=== PATIENT | male | born 1955 | race Caucasian/White ===

== ENCOUNTER 2024-06-09 16:30 | Inpatient (IN) ==
[2024-06-09 17:18] LABS: Basophils # (auto) 0.01 K/uL (0.00-0.20); Basophils % (auto) 0.3 %; Eosinophils % (auto) 2.7 %; Hematocrit (blood only) 37.3 % (42.0-52.0); Hemoglobin 12.7 g/dl (14.0-18.0); Immature Granulocytes # (auto) 0.01 K/uL (0.01-0.20); Immature Granulocytes % (auto) 0.3 %; Lymphocytes # (auto) 1.23 K/uL (1.20-3.40); Lymphocytes % (auto) 33.8 %; Mean Corpuscular Hemoglobin 30.2 pg (25.0-34.0); Mean Corpuscular Volume 88.6 fL (80.0-100.0); Mean Platelet Volume 9.1 fL (9.4-12.4); Monocytes # (auto) 0.47 K/uL (0.11-0.59); Monocytes % (auto) 12.9 %; Neutrophils # (auto) 1.82 K/uL (1.40-6.50); Platelet Count 266 K/uL (130-400); RDW Coefficient of Variation 14.4 % (11.5-14.5); RDW Standard Deviation 46.1 fL (36.4-46.3); Red Blood Count 4.21 M/uL (4.70-6.10); White Blood Count 3.64 K/ul (4.8-10.8)
[2024-06-09 17:33] LABS: Albumin Globulin Ratio 1.6 (0.9-2); Albumin Level 4.4 gm/dl (3.4-5.0); BUN Creatinine Ratio 12.6 (10-20); Bilirubin,Total 0.7 mg/dl (0.2-1.0); Calcium 9.3 mg/dl (8.6-10.3); Creatinine Clr Calc Pharmacy 71.8 ml/min; Globulin 2.8 gm/dl (2.5-4.0); Magnesium 1.6 mg/dl (1.7-2.4); Potassium 3.5 mmol/L (3.5-5.1); Total Protein 7.2 gm/dl (6.0-8.3)
--- NOTE | 2024-06-09 17:39 | Emergency Department Note ---
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 There was no loss of consciousness. No injury. The patient states that he seemed fine after. He states that yesterday morning, without warning, he vomited. He went to the bathroom and then vomited again. He was fine for most of the day. At around 5 PM yesterday though, he was showering and felt very lightheaded. He thinks he lost about 15 to 20 minutes of time as he cannot recall the shower and when he looked at the clock, around 20 minutes had passed. When he got out of the shower, he was weak in both upper extremities and had a hard time dressing. He forgot to dry off. He had a hard time finding his words or finding what he wanted to say. He went to bed, he woke up this morning and felt back to baseline, he has had no symptoms throughout the day today. There is no headache, no arm or leg weakness. No chest pain or shortness of breath or abdominal pain. He called his doctor's office because of his symptoms, he was referred to the ER. He does have a history of previous CVA. He is on Plavix. PMHx/PSHx/Social Hx: See Below PHYSICAL EXAM: GENERAL: Patient is in no acute distress. HEENT: No acute trauma, normocephalic atraumatic, mucous membranes moist, no nasal congestion. NECK: No stridor, no adenopathy, no meningismus, trachea is midline. LUNGS: Clear to auscultation bilaterally, no wheeze, no rhonchi, breath sounds equal. HEART: 1/6 systolic murmur, regular rate and rhythm. ABDOMEN: Soft, nontender, no peritonitis. EXTREMITIES: No cyanosis, full range of motion of all the joints without pain or difficulty. NEUROLOGIC: Awake alert, no speech slur. There is a right facial droop although the family believes this is old. No extremity drift or cerebellar dysfunction. SKIN: No jaundice, no diaphoresis. DIFFERENTIAL DIAGNOSIS: TIA, CVA, intracranial bleeding, electrolyte imbalance, UTI, dysrhythmia, among others. EMERGENCY DEPARTMENT PROCEDURES: MEDICAL DECISION MAKING: There is no leukocytosis, in fact, the white count is somewhat low indicating a potential viral process. Patient did have a mild anemia with a hemoglobin of 12.7, looking at previous records, the patient seems to carry history of anemia. There was a normal platelet count. No coagulopathy. No renal failure. Magnesium somewhat low at 1.6. No concerning liver enzyme elevation. ECG showed a normal sinus rhythm, no ischemia. Cardiac enzyme testing x 1 was not consistent with acute cardiac injury. Urinalysis did not show findings of infection. Brain CT showed no acute bleed or mass effect. CT angio of the head and neck were performed. There were some areas of chronic occlusion, there were areas of arterial narrowing. On exam, the patient did have a right facial droop which by his report was old. There were no acute focal neurologic findings, no extremity deficits. As per nursing staff, stroke scale was 0. The patient was essentially asymptomatic. The patient received a 500 cc saline bolus. He was given IV magnesium. He was given oral aspirin. The patient presents with strokelike symptoms which luckily, resolved spontaneously prior to arrival. He actually has been asymptomatic all day today. The patient is not a candidate for TNK given his resolution of symptoms. The patient has a history of CVA. He does have an abnormal CT angio of the head and neck. He is at risk for stroke and certainly sounds to have had a TIA within the last 24 to 48 hours. I spoke with the patient, I do think a hospital stay is warranted. I spoke with the case management team, the on-call hospitalist was consulted. The patient requires further stroke workup as well as a neurology consult. Prior/Outside records/notes reviewed: None ECG per my interpretation: Indication was possible stroke. The ECG shows a normal sinus rhythm with a rate of 68. There is no acute ST elevation, no PVCs. The QTc is 448. Continuous Cardiac Monitoring per my interpretation: An order was placed for continuous cardiac monitoring. The monitor shows a rate of 65 with normal sinus rhythm. Imaging/x-ray results per my interpretation: Chronic Medical/Social conditions affecting care: History of previous CVA Care/Management discussed with: Case management, the on-call hospitalist. Level of care consideration(s): After review of the information above and other included data: --I believe the patient requires escalation of care to admission DISPOSITION: Admission Past Med/Surg History Problem List (Updated 06/09/24 @ 22:18 by Tramaine Miller MD) Abnormal brain CT (Acute) Hypomagnesemia (Acute) Anemia (Acute) Facial droop (Acute) History of CVA (cerebrovascular accident) (Acute) Stroke-like symptoms (Acute) Diabetes Stroke-like symptoms Encounter for pre-operative examination Lip laceration (Acute) Alcoholic intoxication (Acute) Alcohol overdose (Acute) Alcohol overdose (Acute) Hypertension (Chronic) Hyperlipidemia (Chronic) GERD (gastroesophageal reflux disease) (Chronic) Medical History Hx of gastroesophageal reflux (GERD) History of stroke 2018, "slight memory loss"; f/u [facility] neurology > currently on plavix Anxiety and depression Hypertension Hyperlipidemia Surgical History Hx of eye surgery "for a hole in his eye">no current vision issues Social History Smoking Status: Current every day smoker Tobacco Type: Cigarettes Cigarettes Per Day: 1; Second Hand Exposure: No; Do You Dip or Chew Tobacco: No; Hx Alcohol Use: Yes Alcohol type: wine Hx Substance Use: No Preferred Language: Citizen Of [place] Communication Ability: Effective Appliance Line Assembler Required: No Beliefs That Will Affect Care: None Current Living Situation: Spouse Feels Safe at Home: Yes Assistive Devices: Glasses Allergies Allergies Allergy/AdvReac Type Severity Reaction Status Date / Time No Known Allergies Allergy Verified 06/09/24 17:59 Home Meds Home Medications Medication Instructions Recorded Confirmed amlodipine 10 mg tablet 10 mg PO QAM 05/27/24 06/09/24 atorvastatin 80 mg tablet (Lipitor) 80 mg PO QAM 05/27/24 06/09/24 bupropion HCl 150 mg 24 hr tablet, 150 mg PO QAM 05/27/24 06/09/24 extended release (Wellbutrin XL) clopidogrel 75 mg tablet (Plavix) 75 mg PO QAM 05/27/24 06/09/24 escitalopram oxalate 20 mg tablet 20 mg PO QAM 05/27/24 06/09/24 (Lexapro) hydrochlorothiazide 25 mg tablet 25 mg PO QAM 05/27/24 06/09/24 lisinopril 40 mg tablet 40 mg PO QAM 05/27/24 06/09/24 metformin 1,000 mg tablet 1,000 mg PO BID 05/27/24 06/09/24 Results & Data (ED) Vital Signs Vital Signs - 24 hr 06/09/24 16:35 06/09/24 17:16 06/09/24 18:33 Temperature 36.7 C Temperature Source Temporal Artery Scan Pulse Rate 74 65 Pulse Rate [Apical] 61 Pulse Rhythm Regular Pulse Strength Normal Respiratory Rate 20 18 Respiratory Effort / Characteristics Non-Labored Spontaneous Non-Labored Spontaneous Respiratory Depth Normal Normal Respiratory Pattern Regular Blood Pressure 134/79 Blood Pressure [Left Arm] 164/80 H Blood Pressure Mean 97 Blood Pressure Mean [Left Arm] 108 Blood Pressure Position Lying Pulse Oximetry 96 96 Oxygen Delivery Method Room Air Room Air Sepsis Recent Fever Within 48 Hours No Sepsis New/Unexplained Change in Mental Status N/A Sepsis Action Taken by Nursing No Action Required 06/09/24 19:00 Temperature Temperature Source Pulse Rate Pulse Rate [Apical] Pulse Rhythm Pulse Strength Respiratory Rate Respiratory Effort / Characteristics Respiratory Depth Respiratory Pattern Blood Pressure Blood Pressure [Left Arm] Blood Pressure Mean Blood Pressure Mean [Left Arm] Blood Pressure Position Pulse Oximetry Oxygen Delivery Method Room Air Sepsis Recent Fever Within 48 Hours Sepsis New/Unexplained Change in Mental Status Sepsis Action Taken by Long-Term Medications Current Medication List: was personally reviewed by me Laboratory Data Attestation: I reviewed the patient's lab results. 06/09/24 17:03 06/09/24 17:03 Lab Results 06/09/24 06/09/24 Range/Units 17:03 18:43 WBC 3.64 L (4.8-10.8) K/ul RBC 4.21 L (4.70-6.10) M/uL Hgb 12.7 L (14.0-18.0) g/dl Hct 37.3 L (42.0-52.0) % MCV 88.6 (80.0-100.0) fL MCH 30.2 (25.0-34.0) pg MCHC 34.0 (32.0-36.0) g/dL RDW Std Deviation 46.1 (36.4-46.3) fL RDW Coeff of [place] 14.4 (11.5-14.5) % Plt Count 266 (130-400) K/uL MPV 9.1 L (9.4-12.4) fL Immature Gran % (Auto) 0.3 % Neut % (Auto) 50.0 % Lymph % (Auto) 33.8 % [place] % (Auto) 12.9 % Eos % (Auto) 2.7 % Baso % (Auto) 0.3 % Neut # (Auto) 1.82 (1.40-6.50) K/uL Lymph # (Auto) 1.23 (1.20-3.40) K/uL Camp # (Auto) 0.47 (0.11-0.59) K/uL Eos # (Auto) 0.10 (0.00-0.50) K/uL Baso # (Auto) 0.01 (0.00-0.20) K/uL Immature Gran # (Auto) 0.01 (0.01-0.20) K/uL PT 11.0 (9.0-12.0) Seconds INR 1.0 (0.9-1.1) APTT 25 (21-31) Seconds PTT Ratio 0.9 Sodium 139 (136-145) mmol/L Potassium 3.5 (3.5-5.1) mmol/L Chloride 98 (98-107) mmol/L Carbon Dioxide 29 (21-32) mmol/L Anion Gap 12 H (3-11) BUN 14 (6-23) mg/dl Creatinine 1.11 (0.6-1.4) mg/dl Est Cr Clr Drug Dosing 71.8 ml/min eGFR 73.24 BUN/Creatinine Ratio 12.6 (10-20) Glucose 108 H (70-99(Fasting)) mg/dl Calcium 9.3 (8.6-10.3) mg/dl Magnesium 1.6 L (1.7-2.4) mg/dl Total Bilirubin 0.7 (0.2-1.0) mg/dl AST 22 (13-39) U/L ALT 21 (7-52) U/L Alkaline Phosphatase 77 (34-104) U/L Troponin I High Sens 4.0 (0-20) pg/ml Total Protein 7.2 (6.0-8.3) gm/dl Albumin 4.4 (3.4-5.0) gm/dl Globulin 2.8 (2.5-4.0) gm/dl Albumin/Globulin Ratio 1.6 (0.9-2) Urine Color Yellow Urine Appearance Clear (Clear) Urine pH 7.5 (4.5-7.5) Ur Specific [place] 1.017 (1.000-1.030) Urine Protein Trace H (Negative) Urine Glucose (UA) Negative (Negative) Urine Ketones Trace H (Negative) Urine Blood Negative (Negative) Urine Nitrite Negative (Negative) Urine Bilirubin Negative (Negative) Urine Urobilinogen Positive H (Negative) Ur Leukocyte Esterase Negative (Negative) Urine WBC (Auto) 0-5 (0-5) /hpf Urine RBC (Auto) 3-5 H (0-2) /hpf U Hyaline Cast (Auto) 0-2 (0-2) /lpf U Epithel Cells (Auto) 0-2 (0-2) /hpf Urine Bacteria (Auto) None Seen (None Seen) Administered Medications Lactated Ringer's (Lr) 1,000 mls @ 100 mls/hr IV .Q10H JENNI Stop: 06/10/24 06:29 Last Admin: 06/09/24 20:27 Dose: 100 mls/hr Documented By: MEGAN Insulin Aspart (Insulin Aspart Per Unit Charge) 0 units SC ACHS JENNI Stop: 07/09/24 21:06 Last Admin: 06/09/24 22:08 Dose: Not Given Documented By: SJG Discontinued Medications Aspirin (Aspirin 81 Mg Chew) 324 mg PO NOW STA Stop: 06/09/24 20:15 Last Admin: 06/09/24 20:26 Dose: 324 mg Documented By: MEGAN Magnesium Sulfate/Dextrose (Magnesium Sulfate / D5w) 1 gm in 100 mls @ 100 mls/hr IV NOW STA Stop: 06/09/24 18:51 Last Infusion: 06/09/24 19:47 Dose: Infused Documented By: Admin: 06/09/24 18:41 Dose: 100 mls/hr Documented By: JANKI Sodium Chloride (Nss) 500 mls @ 999 mls/hr IV .Q31M ONE Stop: 06/09/24 19:38 Last Infusion: 06/09/24 19:47 Dose: Infused Documented By: Admin: 06/09/24 19:16 Dose: 999 mls/hr Documented By: MEGAN Ioversol (Optiray 320 125ml) 115 ml IV ONCE ONE Stop: 06/09/24 18:29 Last Admin: 06/09/24 18:29 Dose: 115 ml Documented By: ROSAURA Imaging Data Radiologist's Impression: Head CT 06/09/24 16:50 EXAM: CT Head Without Intravenous Contrast INDICATION: Syncope. Amnesia. TECHNIQUE: Axial computed tomography images of the head/brain without intravenous contrast. Sagittal and/or coronal reformats are provided. Sagittal and coronal reformatted images were created and reviewed. This CT exam was performed using one or more of the following dose reduction techniques: automated exposure control, adjustment of the mA and/or kV according to patient size, and/or use of iterative reconstruction technique. COMPARISON: No relevant prior studies available. FINDINGS: Limitations: None. Brain and extra-axial spaces: There is age appropriate cortical atrophy and chronic ischemic periventricular white matter hypodensity. No acute infarct, hemorrhage or mass noted. Old left frontal infarct with ex vacuo dilatation of the left lateral ventricle. Bones/joints: No acute changes. Soft tissues: No significant abnormality noted. Vasculature: Intracranial atherosclerosis. Sinuses: Mild chronic ethmoid sinus thickening. No sinus fluid. Mastoid air cells: No mastoid effusion. Orbits: No significant abnormality noted. IMPRESSION: Cerebral atrophy. No acute changes. The case was discussed by phone with Dr. Miller at 7:15 PM 06/09/2024. ACT 112: N/A Electronically signed by Em Feliz 06-09-2024 7:19 PM Head CTA 06/09/24 16:50 EXAM: CT Angiography Head and Neck With Intravenous Contrast INDICATION: Syncope. Lightheadedness. TECHNIQUE: [place]/head and neck CT angiography protocol performed with intravenous contrast. Sagittal and coronal reformatted images were created and reviewed. This CT exam was performed using one or more of the following dose reduction techniques: automated exposure control, adjustment of the mA and/or kV according to patient size, and/or use of iterative reconstruction technique. MIP reconstructed images were created and reviewed. CONTRAST: 115ml of Optiray 320 was administered intravenously. COMPARISON: None. FINDINGS: HEAD: Right anterior cerebral artery: No abnormality noted. No occlusion or significant stenosis. Anterior communicating artery is present. No aneurysm. Right middle cerebral artery: There is focal stenosis distal right M1 middle cerebral artery of about 50% with mild poststenotic dilatation. No occlusion or dissection. No aneurysm. Right posterior cerebral artery: No abnormality noted. No occlusion or significant stenosis. No aneurysm. Right intracranial internal carotid artery: No abnormality noted. No significant stenosis. No dissection or occlusion. Right intracranial vertebral artery: There is focal calcific plaque intracranial right vertebral artery without occlusion. Focal approximate 40% stenosis at the plaque. No aneurysm or dissection. Left anterior cerebral artery: No abnormality noted. No occlusion or significant stenosis. No aneurysm. Left middle cerebral artery: There is occlusion of left M1 middle cerebral artery. No aneurysm. Left posterior cerebral artery: Normal variant origin left posterior cerebral artery. No aneurysm, dissection or occlusion. Left intracranial internal carotid artery: No abnormality noted. No significant stenosis. No dissection or occlusion. Left intracranial vertebral artery: Extremely diminutive intracranial left vertebral artery which appears occluded close to the entrance to the foramen magnum. Basilar artery: No abnormality noted. No occlusion or significant stenosis. No aneurysm. Other vasculature: Patent dural venous sinuses. No vascular malformation. NECK: Right common carotid artery: No abnormality noted. No significant stenosis. No dissection or occlusion. Right extracranial internal carotid artery: No abnormality noted. No significant stenosis. No dissection or occlusion. Right external carotid artery: No abnormality noted. No occlusion. Right extracranial vertebral artery: No abnormality noted. No significant stenosis. No dissection or occlusion. Left common carotid artery: No abnormality noted. No significant stenosis. No dissection or occlusion. Left extracranial internal carotid artery: Moderate mixed plaque left cervical internal carotid bulb and proximal segment with less than 25% stenosis. No dissection or occlusion. Left external carotid artery: No abnormality noted. No occlusion. Left extracranial vertebral artery: No abnormality noted. No significant stenosis. No dissection or occlusion. Lung apices: No significant abnormality noted. HEAD and NECK: Bones/joints: No significant abnormality. Soft tissues: No abnormality noted. CAROTID STENOSIS REFERENCE USING NASCET CRITERIA: % ICA stenosis = (1 - narrowest ICA diameter/diameter of distal cervical ICA) x 100. Mild - <50% stenosis. Moderate - 50-69% stenosis. Severe - 70-94% stenosis. Near occlusion - 95-99% stenosis. Occluded - 100% stenosis. IMPRESSION: 1. There is occlusion of left M1 middle cerebral artery. Acuity uncertain. 2. Left middle cerebral artery occlusion distal M1. This is likely chronic as the patient is not hemiplegic. 3. 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 4. There is focal calcification in the right intracranial vertebral artery with about 40% stenosis. 5. There is a short focal stenosis of up to 50% in the right M1 middle cerebral artery. The case was discussed by phone with Dr. Miller at 7:15 PM 06/09/2024. ACT 112: N/A Electronically signed by Em Feliz 06-09-2024 7:19 PM Neck CTA 06/09/24 16:50 EXAM: CT Angiography Head and Neck With Intravenous Contrast INDICATION: Syncope. Lightheadedness. TECHNIQUE: [place]/head and neck CT angiography protocol performed with intravenous contrast. Sagittal and coronal reformatted images were created and reviewed. This CT exam was performed using one or more of the following dose reduction techniques: automated exposure control, adjustment of the mA and/or kV according to patient size, and/or use of iterative reconstruction technique. MIP reconstructed images were created and reviewed. CONTRAST: 115ml of Optiray 320 was administered intravenously. COMPARISON: None. FINDINGS: HEAD: Right anterior cerebral artery: No abnormality noted. No occlusion or significant stenosis. Anterior communicating artery is present. No aneurysm. Right middle cerebral artery: There is focal stenosis distal right M1 middle cerebral artery of about 50% with mild poststenotic dilatation. No occlusion or dissection. No aneurysm. Right posterior cerebral artery: No abnormality noted. No occlusion or significant stenosis. No aneurysm. Right intracranial internal carotid artery: No abnormality noted. No significant stenosis. No dissection or occlusion. Right intracranial vertebral artery: There is focal calcific plaque intracranial right vertebral artery without occlusion. Focal approximate 40% stenosis at the plaque. No aneurysm or dissection. Left anterior cerebral artery: No abnormality noted. No occlusion or significant stenosis. No aneurysm. Left middle cerebral artery: There is occlusion of left M1 middle cerebral artery. No aneurysm. Left posterior cerebral artery: Normal variant origin left posterior cerebral artery. No aneurysm, dissection or occlusion. Left intracranial internal carotid artery: No abnormality noted. No significant stenosis. No dissection or occlusion. Left intracranial vertebral artery: Extremely diminutive intracranial left vertebral artery which appears occluded close to the entrance to the foramen magnum. Basilar artery: No abnormality noted. No occlusion or significant stenosis. No aneurysm. Other vasculature: Patent dural venous sinuses. No vascular malformation. NECK: Right common carotid artery: No abnormality noted. No significant stenosis. No dissection or occlusion. Right extracranial internal carotid artery: No abnormality noted. No significant stenosis. No dissection or occlusion. Right external carotid artery: No abnormality noted. No occlusion. Right extracranial vertebral artery: No abnormality noted. No significant stenosis. No dissection or occlusion. Left common carotid artery: No abnormality noted. No significant stenosis. No dissection or occlusion. Left extracranial internal carotid artery: Moderate mixed plaque left cervical internal carotid bulb and proximal segment with less than 25% stenosis. No dissection or occlusion. Left external carotid artery: No abnormality noted. No occlusion. Left extracranial vertebral artery: No abnormality noted. No significant stenosis. No dissection or occlusion. Lung apices: No significant abnormality noted. HEAD and NECK: Bones/joints: No significant abnormality. Soft tissues: No abnormality noted. CAROTID STENOSIS REFERENCE USING NASCET CRITERIA: % ICA stenosis = (1 - narrowest ICA diameter/diameter of distal cervical ICA) x 100. Mild - <50% stenosis. Moderate - 50-69% stenosis. Severe - 70-94% stenosis. Near occlusion - 95-99% stenosis. Occluded - 100% stenosis. IMPRESSION: 1. There is occlusion of left M1 middle cerebral artery. Acuity uncertain. 2. Left middle cerebral artery occlusion distal M1. This is likely chronic as the patient is not hemiplegic. 3. 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 4. There is focal calcification in the right intracranial vertebral artery with about 40% stenosis. 5. There is a short focal stenosis of up to 50% in the right M1 middle cerebral artery. The case was discussed by phone with Dr. Miller at 7:15 PM 06/09/2024. ACT 112: N/A Electronically signed by Em Feliz 06-09-2024 7:19 PM Discharge Plan Visit Data Chief Complaint: Neuro Symptoms/Deficit Stated Complaint: PMHx STROKE,VOMITING,CONFUSION,PROBLEM SPEAK,FALL ED Provider: Tramaine Miller Discharge Problem: Stroke-like symptoms, History of CVA (cerebrovascular accident), Facial droop, Anemia, Hypomagnesemia, Abnormal brain CT Patient Disposition: Admitted As Inpatient Condition: Serious Discharge Instructions Interventions: ED Discharge Assessment Last Done: 06/09/24 21:01 Discharge Problem: Anemia Qualifiers: Anemia type: unspecified type Qualified Code(s): D64.9 - Anemia, unspecified
[2024-06-09 17:43] LABS: Partial Thromboplastin Ratio 0.9; Partial Thromboplastin Time 25 Seconds (21-31)
[2024-06-09] MEDS: OPTIRAY 320 125ml IV ONE (18:29)
[2024-06-09] MEDS: MAGNESIUM SULFATE / D5W 1 GM/100 ML BAG IV STA (18:41)
[2024-06-09 19:02] LABS: Appearance Urine Clear (Clear); Bacteria Urine Automated None Seen (None Seen); Bilirubin Urine Negative (Negative); Blood Urine Negative (Negative); Cast Urine Automated 0-2 /lpf (0-2); Color Urine Yellow; Epithelial Cell Urine Auto 0-2 /hpf (0-2); Glucose Urine UA Negative (Negative); Ketones Urine Trace (Negative); Leukocyte Esterase Urine Negative (Negative); Nitrite Urine Negative (Negative); Protein Urine Trace (Negative); Specific Gravity Urine 1.017 (1.000-1.030); Urobilinogen Urine Positive (Negative); WBC Urine Automated 0-5 /hpf (0-5); pH Urine 7.5 (4.5-7.5)
[2024-06-09] MEDS: SODIUM CHLORIDE 0.9% 500 ML IV ONE (19:16)
--- NOTE | 2024-06-09 19:19 | CT Scan Report ---
EXAM: CT Angiography Head and Neck With Intravenous Contrast INDICATION: Syncope. Lightheadedness. TECHNIQUE: [place] [facility] [place]/head and neck CT angiography protocol performed with intravenous contrast. Sagittal and coronal reformatted images were created and reviewed. This CT exam was performed using one or more of the following dose reduction techniques: automated exposure control, adjustment of the mA and/or kV according to patient size, and/or use of iterative reconstruction technique. MIP reconstructed images were created and reviewed. CONTRAST: 115ml of Optiray 320 was administered intravenously. COMPARISON: None. FINDINGS: HEAD: Right anterior cerebral artery: No abnormality noted. No occlusion or significant stenosis. Anterior communicating artery is present. No aneurysm. Right middle cerebral artery: There is focal stenosis distal right M1 middle cerebral artery of about 50% with mild poststenotic dilatation. No occlusion or dissection. No aneurysm. Right posterior cerebral artery: No abnormality noted. No occlusion or significant stenosis. No aneurysm. Right intracranial internal carotid artery: No abnormality noted. No significant stenosis. No dissection or occlusion. Right intracranial vertebral artery: There is focal calcific plaque intracranial right vertebral artery without occlusion. Focal approximate 40% stenosis at the plaque. No aneurysm or dissection. Left anterior cerebral artery: No abnormality noted. No occlusion or significant stenosis. No aneurysm. Left middle cerebral artery: There is occlusion of left M1 middle cerebral artery. No aneurysm. Left posterior cerebral artery: Normal variant origin left posterior cerebral artery. No aneurysm, dissection or occlusion. Left intracranial internal carotid artery: No abnormality noted. No significant stenosis. No dissection or occlusion. Left intracranial vertebral artery: Extremely diminutive intracranial left vertebral artery which appears occluded close to the entrance to the foramen magnum. Basilar artery: No abnormality noted. No occlusion or significant stenosis. No aneurysm. Other vasculature: Patent dural venous sinuses. No vascular malformation. NECK: Right common carotid artery: No abnormality noted. No significant stenosis. No dissection or occlusion. Right extracranial internal carotid artery: No abnormality noted. No significant stenosis. No dissection or occlusion. Right external carotid artery: No abnormality noted. No occlusion. Right extracranial vertebral artery: No abnormality noted. No significant stenosis. No dissection or occlusion. Left common carotid artery: No abnormality noted. No significant stenosis. No dissection or occlusion. Left extracranial internal carotid artery: Moderate mixed plaque left cervical internal carotid bulb and proximal segment with less than 25% stenosis. No dissection or occlusion. Left external carotid artery: No abnormality noted. No occlusion. Left extracranial vertebral artery: No abnormality noted. No significant stenosis. No dissection or occlusion. Lung apices: No significant abnormality noted. HEAD and NECK: Bones/joints: No significant abnormality. Soft tissues: No abnormality noted. CAROTID STENOSIS REFERENCE USING NASCET CRITERIA: % ICA stenosis = (1 - narrowest ICA diameter/diameter of distal cervical ICA) x 100. Mild - <50% stenosis. Moderate - 50-69% stenosis. Severe - 70-94% stenosis. Near occlusion - 95-99% stenosis. Occluded - 100% stenosis. IMPRESSION: 1. There is occlusion of left M1 middle cerebral artery. Acuity uncertain. 2. Left middle cerebral artery occlusion distal M1. This is likely chronic as the patient is not hemiplegic. 3. 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 4. There is focal calcification in the right intracranial vertebral artery with about 40% stenosis. 5. There is a short focal stenosis of up to 50% in the right M1 middle cerebral artery. The case was discussed by phone with Dr. Miller at 7:15 PM 06/09/2024. ACT 112: N/A Electronically signed by Em Feliz 06-09-2024 7:19 PM
--- NOTE | 2024-06-09 19:19 | CT Scan Report ---
EXAM: CT Head Without Intravenous Contrast INDICATION: Syncope. Amnesia. TECHNIQUE: Axial computed tomography images of the head/brain without intravenous contrast. Sagittal and/or coronal reformats are provided. Sagittal and coronal reformatted images were created and reviewed. This CT exam was performed using one or more of the following dose reduction techniques: automated exposure control, adjustment of the mA and/or kV according to patient size, and/or use of iterative reconstruction technique. COMPARISON: No relevant prior studies available. FINDINGS: Limitations: None. Brain and extra-axial spaces: There is age appropriate cortical atrophy and chronic ischemic periventricular white matter hypodensity. No acute infarct, hemorrhage or mass noted. Old left frontal infarct with ex vacuo dilatation of the left lateral ventricle. Bones/joints: No acute changes. Soft tissues: No significant abnormality noted. Vasculature: Intracranial atherosclerosis. Sinuses: Mild chronic ethmoid sinus thickening. No sinus fluid. Mastoid air cells: No mastoid effusion. Orbits: No significant abnormality noted. IMPRESSION: Cerebral atrophy. No acute changes. The case was discussed by phone with Dr. Miller at 7:15 PM 06/09/2024. ACT 112: N/A Electronically signed by Em Feliz 06-09-2024 7:19 PM
--- NOTE | 2024-06-09 20:18 | History & Physical Report ---
Date of Service June 09, 2024 Assessment & Plan (1) Stroke-like symptoms: Plan: CT with multiple vessel occlusions. Likely TIA as symptoms have resolved. MRI ordered. ASA 324 mg given. Patient already on Plavix and high intensity statin therapy. Neurology consult - appreciate recs Allow permissive HTN - aim SBP 160s Held amlodipine, HCTZ, and lisinopril Labetalol 10 mg IV PRN for SBP > 200 or DBP > 110 MRI and ECHO ordered HbA1c and lipids (2) Hypertension: Plan: Hold BP meds as above for now (3) Diabetes: Plan: Hold metformin. SSI insulin ordered, no basal - adjust as indicated (4) History of stroke: Plan: Patient relatively young to have multiple CVAs. Per , there's a strong family history of cardiovascular/cerebrovascular events. May want to explore alternative reasons for his vasculopathic status. Plan Anxiety/Depression - continue home meds HLD: continue high intensity statin therapy Code status: full DVT ppx: ASA and Plavix, SCDs FENGI: HH and CC, mIVF @ 100 mL/hr x 1 L Dispo: PCU/Tele History of Present Illness Chief Complaint: stroke like symptoms Primary Care Provider: Ophelia Peña MD 68 y/o male with a PMHx of diabetes, HTN, HLD, and prior CVA here for evaluation of stroke like symptoms. Patient hit his head 2 days ago - no LOC or injury to the area. [place] fine after. Yesterday he vomited twice and didn't eat much - no other symptoms. Then around 5 pm he was showering and he had some loss of time. It took him about 20 minutes to shower which is long for him. He describes what sounds like slurred speech and expressive aphasia. He also reports that he had bilateral upper extremity weakness which made drying off and getting dressed take a long time. He took a Tylenol and went to bed. When he awoke his symptoms had resolved. He called his PCP office who recommended ED evaluation. In the ED patient was given 500 mL NSS and magnesium. CT Head and CTA Head & Neck. Hospitalist service consulted for admission. Upon my interview patient denies any neurological symptoms. No motor or strength concerns. Right sided facial droop is chronic. Generally feeling well. No headache. is present at bedside and aids in obtaining the history. Allergies Allergy/AdvReac Type Severity Reaction Status Date / Time No Known Allergies Allergy Verified 06/09/24 17:59 Home Medications Medication Instructions Recorded Confirmed Type amlodipine 10 mg tablet 10 mg PO QAM 05/27/24 06/09/24 History atorvastatin 80 mg tablet (Lipitor) 80 mg PO QAM 05/27/24 06/09/24 History bupropion HCl 150 mg 24 hr tablet, 150 mg PO QAM 05/27/24 06/09/24 History extended release (Wellbutrin XL) clopidogrel 75 mg tablet (Plavix) 75 mg PO QAM 05/27/24 06/09/24 History escitalopram oxalate 20 mg tablet 20 mg PO QAM 05/27/24 06/09/24 History (Lexapro) hydrochlorothiazide 25 mg tablet 25 mg PO QAM 05/27/24 06/09/24 History lisinopril 40 mg tablet 40 mg PO QAM 05/27/24 06/09/24 History metformin 1,000 mg tablet 1,000 mg PO BID 05/27/24 06/09/24 History aspirin 81 mg tablet,delayed 81 mg PO QAM #30 tabs 06/10/24 Rx release levetiracetam 500 mg tablet 500 mg PO BID #60 tabs 06/10/24 Rx (Keppra) Past Med/Surg History Problem List (Updated 06/11/24 @ 00:07 by Background Dacandida) Stenosis of left middle cerebral artery Seizure-like activity Abnormal brain CT (Acute) Hypomagnesemia (Acute) Anemia (Acute) Facial droop (Acute) History of CVA (cerebrovascular accident) (Acute) Stroke-like symptoms (Acute) Diabetes Stroke-like symptoms Encounter for pre-operative examination Lip laceration (Acute) Alcoholic intoxication (Acute) Alcohol overdose (Acute) Alcohol overdose (Acute) Hypertension (Chronic) Hyperlipidemia (Chronic) GERD (gastroesophageal reflux disease) (Chronic) Medical History Hx of gastroesophageal reflux (GERD) History of stroke 2018, "slight memory loss"; f/u [facility] [place] neurology > currently on plavix Anxiety and depression Hypertension Hyperlipidemia Surgical History Hx of eye surgery "for a hole in his eye">no current vision issues Social History Smoking Status: Never smoker Tobacco Type: Cigarettes Cigarettes Per Day: 1; Second Hand Exposure: No; Do You Dip or Chew Tobacco: No; Hx Alcohol Use: No Hx Substance Use: No Preferred Language: Bengali Communication Ability: Effective 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 Beliefs That Will Affect Care: None Current Living Situation: Spouse Feels Safe at Home: Yes Assistive Devices: None Review of Systems 2 Review of Systems: See HPI Physical Exam 2 Physical Exam: Gen: well appearing patient in NAD HEENT: AT NC MMM Resp: CTAB no wheezing no increased work of breathing CV: RRR no m/r/g clinically well perfused Abd: soft, non-tender, non-distended MSK: no obvious deformities Skin: no rashes or bruising Neuro: alert and oriented, 5/5 strength all extremities, sensation intact, no focal deficits - old slight right facial droop noted, speech fluent and congruent Psych: appropriate mood and affect Results & Data Results & Data Vital Signs (Past 12 Hours) Vital Signs Temp Pulse Pulse Resp BP BP Pulse Ox 06/09/24 19:00 06/09/24 18:33 61 18 164/80 H 96 06/09/24 17:16 65 06/09/24 16:35 36.7 C 74 20 134/79 96 O2 Del Method 06/09/24 19:00 Room Air 06/09/24 18:33 Room Air 06/09/24 17:16 06/09/24 16:35 Room Air Laboratory Results 06/09/24 17:03 06/09/24 17:[address] 06/09/24 16:50 FINDINGS: Brain and extra-axial spaces: There is age appropriate cortical atrophy and chronic ischemic periventricular white matter hypodensity. No acute infarct, hemorrhage or mass noted. Old left frontal infarct with ex vacuo dilatation of the left lateral ventricle. Bones/joints: No acute changes. Soft tissues: No significant abnormality noted. Vasculature: Intracranial atherosclerosis. Sinuses: Mild chronic ethmoid sinus thickening. No sinus fluid. Mastoid air cells: No mastoid effusion. Orbits: No significant abnormality noted. IMPRESSION: Cerebral atrophy. No acute changes. Neck CTA 06/09/24 16:50 FINDINGS: HEAD: Right anterior cerebral artery: No abnormality noted. No occlusion or significant stenosis. Anterior communicating artery is present. No aneurysm. Right middle cerebral artery: There is focal stenosis distal right M1 middle cerebral artery of about 50% with mild poststenotic dilatation. No occlusion or dissection. No aneurysm. Right posterior cerebral artery: No abnormality noted. No occlusion or significant stenosis. No aneurysm. Right intracranial internal carotid artery: No abnormality noted. No significant stenosis. No dissection or occlusion. Right intracranial vertebral artery: There is focal calcific plaque intracranial right vertebral artery without occlusion. Focal approximate 40% stenosis at the plaque. No aneurysm or dissection. Left anterior cerebral artery: No abnormality noted. No occlusion or significant stenosis. No aneurysm. Left middle cerebral artery: There is occlusion of left M1 middle cerebral artery. No aneurysm. Left posterior cerebral artery: Normal variant origin left posterior cerebral artery. No aneurysm, dissection or occlusion. Left intracranial internal carotid artery: No abnormality noted. No significant stenosis. No dissection or occlusion. Left intracranial vertebral artery: Extremely diminutive intracranial left vertebral artery which appears occluded close to the entrance to the foramen magnum. Basilar artery: No abnormality noted. No occlusion or significant stenosis. No aneurysm. Other vasculature: Patent dural venous sinuses. No vascular malformation. NECK: Right common carotid artery: No abnormality noted. No significant stenosis. No dissection or occlusion. Right extracranial internal carotid artery: No abnormality noted. No significant stenosis. No dissection or occlusion. Right external carotid artery: No abnormality noted. No occlusion. Right extracranial vertebral artery: No abnormality noted. No significant stenosis. No dissection or occlusion. Left common carotid artery: No abnormality noted. No significant stenosis. No dissection or occlusion. Left extracranial internal carotid artery: Moderate mixed plaque left cervical internal carotid bulb and proximal segment with less than 25% stenosis. No dissection or occlusion. Left external carotid artery: No abnormality noted. No occlusion. Left extracranial vertebral artery: No abnormality noted. No significant stenosis. No dissection or occlusion. Lung apices: No significant abnormality noted. HEAD and NECK: Bones/joints: No significant abnormality. Soft tissues: No abnormality noted. CAROTID STENOSIS REFERENCE USING NASCET CRITERIA: % ICA stenosis = (1 - narrowest ICA diameter/diameter of distal cervical ICA) x 100. Mild - <50% stenosis. Moderate - 50-69% stenosis. Severe - 70-94% stenosis. Near occlusion - 95-99% stenosis. Occluded - 100% stenosis. IMPRESSION: 1. There is occlusion of left M1 middle cerebral artery. Acuity uncertain. 2. Left middle cerebral artery occlusion distal M1. This is likely chronic as the patient is not hemiplegic. 3. 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 4. There is focal calcification in the right intracranial vertebral artery with about 40% stenosis. 5. There is a short focal stenosis of up to 50% in the right M1 middle cerebral artery. The case was discussed by phone with Dr. Miller at 7:15 PM 06/09/2024. ACT 112: N/A Electronically signed by Em Feliz 06-09-2024 7:19 PM Supervising Physician Co-Signing Physician Notes Attending addendum: I have physically seen this patient, have supervised the medical residents activities, and agree with the H&P unless as otherwise noted. Assessment and Plan: The patient is a 68-year-old male with past medical history including diabetes mellitus, hypertension, hyperlipidemia, and previous CVA, who presents to the emergency department complaining of loss of time that occurred while he was showering, feeling that he lost about 20 minutes of time overall. Symptoms were accompanied by slurred speech and expressive aphasia. He also reported some bilateral upper extremity weakness which made him take considerably longer drying off after a shower than usual. He reports that he then went to bed, and after he awoke, his symptoms had completely resolved. When he called his PCPs office, they recommended he come to the ED for assessment. #Strokelike symptoms- Patient symptoms of slurred speech and expressive aphasia had resolved spontaneously as noted above Evaluation in the emergency department included a CT scan head, which showed cerebral atrophy with no acute changes. CTA of head and neck showed an occlusion of the left M1 MCA Left MCA occlusion distal M1 is likely chronic, as the patient is not hyperplasia Left intracranial vertebral artery is diminutive and proximally occluded Focal calcification in the right intracranial vertebral artery with a 40% stenosis Short focal stenosis of up to 50% in the right M1 middle cerebral artery. MRI of brain shows no acute findings in the head or brain. There is a chronic left frontal lobe infarct The patient will be admitted to telemetry for serial cardiac enzymes, serial EKG's, cardiac rhythm monitoring and a 2-D echocardiogram with Dopplers. Permissive hypertension Labetalol as needed as noted Check hemoglobin A1c and fasting lipid panel Continue aspirin 81 mg daily and clopidogrel 75 mg daily. Consult PT/OT/speech/neurology Hyperlipidemia-continue atorvastatin Check fasting lipid panel Diabetes mellitus- Holding metformin Insulin as noted Chronic medical conditions: Anxiety/depression-holding home meds for now Resident Activity Tracking Resident Involvement: Resident Care Provided Care Provided: Adult Hospital Medicine
[2024-06-09] MEDS: ASPIRIN 81 MG CHEW PO STA (20:26)
[2024-06-09] MEDS: LACTATED RINGER'S 1,000 ML IV SCH (20:27)
[2024-06-09] MEDS ORDERED: PHARMACIST DISCHARGE MED REC CONSULT PRN (21:07)
[2024-06-09] MEDS ORDERED: MAGNESIUM HYDROXIDE SUSP 30 ML UDC PO PRN (21:07)
[2024-06-09] MEDS ORDERED: GLUCAGON FOR INJ 1 MG VIAL SQ PRN (21:07)
[2024-06-09] MEDS ORDERED: ALUMINUM/MAGNESIUM SUSP 30 ML UDC PO PRN (21:07)
[2024-06-09] MEDS ORDERED: GLUCOSE 10 TAB/TUBE PO PRN (21:07)
[2024-06-09] MEDS ORDERED: CARBOHYDRATES FOR HYPOGLYCEMIA PO PRN (21:07)
[2024-06-09] MEDS ORDERED: ACETAMINOPHEN 500 MG TAB PO PRN (21:07)
[2024-06-09] MEDS ORDERED: DEXTROSE 50% 50 ML SYRINGE IV PRN (21:07)
[2024-06-09] MEDS ORDERED: GLUCOSE 40% GEL 15 GM TUBE PO PRN (21:07)
[2024-06-09] MEDS ORDERED: LABETALOL HCL IV 5 MG/ML 20ML IV PRN (21:07)
[2024-06-09] MEDS ORDERED: POLYETHYLENE (MIRALAX) 17 GM PACK PO PRN (21:07)
[2024-06-09] MEDS: INSULIN ASPART PER UNIT CHARGE SC SCH (22:08)
--- NOTE | 2024-06-10 00:51 | Magnetic Resonance Report ---
Exam(s): MRI HEAD Without Contrast EXAM: MR Head Without Intravenous Contrast CLINICAL HISTORY: Reason for exam: stroke r/o. TECHNIQUE: Magnetic resonance images of the head/brain without intravenous contrast in multiple planes. COMPARISON: CT head, CTA head 06/09/24 FINDINGS: Brain: No diffusion restriction to suggest acute cerebral ischemia. No acute intracranial hemorrhage. Generalized parenchymal volume loss. Encephalomalacia within the left frontal lobe consistent with chronic left MCA territory infarct. Periventricular foci of FLAIR signal hyperintensity in keeping with chronic small vessel ischemic change. Chronic lacunar infarcts right basal ganglia. Ventricles: Ex vacuo enlargement of the left lateral ventricle. No hydrocephalus. Bones/joints: Unremarkable. No acute fracture. Sinuses: Mucosal thickening within the right ethmoids. Mastoid air cells: Unremarkable as visualized. No mastoid effusion. Orbits: Unremarkable as visualized. IMPRESSION: 1. No acute findings in the head/brain. 2. Chronic left frontal lobe infarct Electronically signed by: Bola Barber M.D. 06/10/24 00:50 AM
[2024-06-10 07:17] VITALS: RESP 17
[2024-06-10 07:46] LABS: Basophils # (auto) 0.01 K/uL (0.00-0.20); Basophils % (auto) 0.2 %; Eosinophils # (auto) 0.14 K/uL (0.00-0.50); Eosinophils % (auto) 2.9 %; Hematocrit (blood only) 37.8 % (42.0-52.0); Hemoglobin 12.6 g/dl (14.0-18.0); Immature Granulocytes # (auto) 0.01 K/uL (0.01-0.20); Immature Granulocytes % (auto) 0.2 %; Lymphocytes # (auto) 1.15 K/uL (1.20-3.40); Lymphocytes % (auto) 23.8 %; Mean Corpuscular Hemoglobin 29.7 pg (25.0-34.0); Mean Corpuscular Hgb Conc 33.3 g/dL (32.0-36.0); Mean Corpuscular Volume 89.2 fL (80.0-100.0); Mean Platelet Volume 9.2 fL (9.4-12.4); Monocytes # (auto) 0.53 K/uL (0.11-0.59); Neutrophils % (auto) 61.9 %; Platelet Count 275 K/uL (130-400); RDW Coefficient of Variation 14.5 % (11.5-14.5); Red Blood Count 4.24 M/uL (4.70-6.10); White Blood Count 4.84 K/ul (4.8-10.8)
[2024-06-10 07:58] LABS: BUN Creatinine Ratio 12.9 (10-20); Calcium 8.6 mg/dl (8.6-10.3); Chol HDL Ratio 4.1 (0-5); Creatinine Clr Calc Pharmacy 85.7 ml/min; Potassium 3.3 mmol/L (3.5-5.1)
[2024-06-10] MEDS: CLOPIDOGREL BISULFATE 75 MG TAB PO SCH (08:52)
[2024-06-10] MEDS: buPROPion XL 150 MG TABCR PO SCH (08:52)
[2024-06-10] MEDS: ASPIRIN 81 MG ECTAB PO SCH (08:52)
[2024-06-10] MEDS: ESCITALOPRAM OXALATE 20 MG TAB PO SCH (08:53)
[2024-06-10] MEDS: ATORVASTATIN 40 MG TAB PO SCH (08:53)
--- NOTE | 2024-06-10 09:34 | Neurology Consultation ---
Date of Consultation June 10, 2024 Assessment & Plan (1) Stroke-like symptoms: (2) Seizure-like activity: (3) History of CVA (cerebrovascular accident): (4) Stenosis of left middle cerebral artery: Plan 68-year-old male with a history of relatively large chronic left frontal lobe infarct occurring in 2018, resulting in mild speech hesitancy with minimal to no residual right hemiparesis. He had presented with a seizure at that time and had briefly been prescribed Keppra, tapered off this medication without interval seizures. Patient now presents with an episode of what sounds like speech arrest without associated loss of awareness or collapse, confusion, inability to get dressed, possible weakness of the upper limbs, loss of time perception. The episode was preceded by a minor fall earlier that morning followed by 2 episodes of emesis. He has otherwise not been ill. Denies consuming excessive alcohol recently. The above acute episode seems consistent with either a focal onset seizure (partial complex seizure) or possibly a TIA. He does have chronic intracranial occlusive disease, notably left M1 segment on CT angiography. Could therefore also consider focal cerebral hypoperfusion due to a vasovagal episode. I suspect he is currently at his neurologic baseline. Would recommend an EEG. Order placed. Would start Keppra 500 mg twice daily. Order placed. Continue with dual antiplatelet therapy, aspirin 81 mg/day, clopidogrel 75 mg/day for 4 weeks, followed by transition back to clopidogrel monotherapy. Continue with atorvastatin 80 mg/day. Patient's LDL is appropriate, goal 70 or less. May allow for permissive hypertension per stroke protocol. Patient may follow-up with myself or an LAINEY in neurology clinic in 2 to 3 weeks after discharge. 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 He was then having a hard time getting dressed, could not speak or move his limbs, no associated collapse for loss of awareness, partially amnestic for the episode. Symptoms have resolved although decided to come to the emergency department for further evaluation. He indicates that some of his symptoms were similar to what he had experienced when he was diagnosed with an acute stroke in 2018. He does not recall experiencing any subsequent similar symptoms. He had briefly been treated with Keppra after his initial stroke in 2018 but had tapered off this medication without any difficulty. He currently feels fine, no headache. He is aware of very subtle speech hesitancy which is chronic. CT angiography of the head and neck revealed a chronic occlusion of the left M1 segment and a short focal stenosis of 50% in the right M1 segment. The left vertebral artery is diminutive and proximally occluded, the right vertebral artery has a 40% intracranial stenosis. Brain MRI is negative for acute infarct or hemorrhage. There is a chronic left frontal lobe infarct extending from the lateral ventricle to the cortex, with associated dilatation of the left lateral ventricle. There are some associated atrophy of the left hippocampal formation and relatively increased FLAIR signal. I independently reviewed these images. Allergies Allergy/AdvReac Type Severity Reaction Status Date / Time No Known Allergies Allergy Verified 06/09/24 17:59 Home Medications Medication Instructions Recorded Confirmed Type amlodipine 10 mg tablet 10 mg PO QAM 05/27/24 06/09/24 History atorvastatin 80 mg tablet (Lipitor) 80 mg PO QAM 05/27/24 06/09/24 History bupropion HCl 150 mg 24 hr tablet, 150 mg PO QAM 05/27/24 06/09/24 History extended release (Wellbutrin XL) clopidogrel 75 mg tablet (Plavix) 75 mg PO QAM 05/27/24 06/09/24 History escitalopram oxalate 20 mg tablet 20 mg PO QAM 05/27/24 06/09/24 History (Lexapro) hydrochlorothiazide 25 mg tablet 25 mg PO QAM 05/27/24 06/09/24 History lisinopril 40 mg tablet 40 mg PO QAM 05/27/24 06/09/24 History metformin 1,000 mg tablet 1,000 mg PO BID 05/27/24 06/09/24 History Patient History Medical History Hx of gastroesophageal reflux (GERD) History of stroke 2018, "slight memory loss"; f/u [facility] [place] > currently on plavix Anxiety and depression Hypertension Hyperlipidemia Surgical History Hx of eye surgery "for a hole in his eye">no current vision issues Social History Smoking Status: Never smoker Tobacco Type: Cigarettes Cigarettes Per Day: 1; Second Hand Exposure: No; Do You Dip or Chew Tobacco: No; Hx Alcohol Use: No Hx Substance Use: No Preferred Language: [place] Communication Ability: Effective 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 Beliefs That Will Affect Care: None Current Living Situation: Spouse Other Information That Helps Us Care for You: No Feels Safe at Home: Yes Safety Concerns: Feels Safe At This Time Assistive Devices: None Review of Systems Constitutional: no fever and no chills Eyes: no blind spots and no diplopia Ear, Nose, Mouth, Throat: no hearing loss Respiratory: no cough and no dyspnea Cardiovascular: no chest pain and no palpitations Gastrointestinal: as per Subjective / HPI, + nausea and + vomiting Genitourinary: no urinary incontinence Musculoskeletal: no neck pain and no myalgia Integumentary: no rash and no lesions Neurologic: as per Subjective / HPI Psychiatric: no depression and no anxiety Hematologic / Lymphatic: no easy bleeding and no easy bruising Exam (Neuro) Constitutional: well developed and well nourished; no acute distress Eyes: normal visual hamm by confrontation, PERRL and EOM intact bilaterally; no nystagmus Neurologic: Oriented to:: Person, Place and Time Memory: Short Term Intact and Remote Intact Attention: Span Intact and Concentration Intact Speech Fluency: Dysfluency (Mild word finding difficulty); negative Dysarthria Speech Aphasia: negative Aphasia Fund of Knowledge: Current Events, Past History and Vocabulary Cranial Nerves: Normal II, III, IV, , V, VIII, IX, X, XI and XII; Abnorm VII (Mild right lower facial droop) Motor Strength: Normal Lower Extremities and Normal Upper Extremities Motor Tone: Normal Lower Extremities and Normal Upper Extremities Muscle Bulk/Involuntary Movements: No Involuntary Movements; negative Muscle Atrophy Sensation: Light Touch Intact, Pain/Temperature Intact and Proprioception Intact Coordination: Normal; negative Dysdiadochokinesia, Finger-Nose Abnormal or Heel-Morgan Abnormal Deep Tendon Reflexes: Rt Triceps: 2+, Lt Triceps: 2+, Rt Biceps: 3+, Lt Biceps: 2+, Rt Brachioradialis: 2+, Lt Brachioradialis: 2+, Rt Patellar: 3+, Lt Patellar: 2+, Rt Ankle: 2+ and Lt Ankle: 1+ Special Tests: Babinski Present (Right plantar equivocal, left plantar downgoing) Results & Data Vital Signs (Past 12 Hours) Vital Signs Temp Pulse Pulse Resp BP Pulse Ox O2 Del Method 06/10/24 07:16 36.5 C 65 17 149/90 H 97 Room Air 06/10/24 03:52 36.9 C 61 19 157/78 H 96 Room Air 06/10/24 00:23 37.0 C 66 18 152/79 H 94 Room Air 06/09/24 23:48 65 06/09/24 22:14 36.9 C 20 161/83 H 94 Room Air Laboratory Results WBC 4.84, hemoglobin 12.6, hematocrit 37.8, platelet count 275, sodium 138, potassium 3.3, BUN 12, creatinine 0.93, glucose 131, magnesium 1.6, AST 22, ALT 1, triglycerides 164, cholesterol 116, LDL 55, HDL 28 Diagnostic Findings Electrocardiogram, normal sinus rhythm, 60 bpm. PG Care Time/CCT Total # of Minutes Spent Total Time Spent with Patient: Total time spent is greater than 50% in coordination of care (as documented) at patient's floor/unit and/or counseling patient: Coding Level of Care Code 25178 INT INP/OBS CARE 3/75MIN Diagnoses Stroke-like symptoms R29.90 Seizure-like activity R56.9 History of CVA (cerebrovascular accident) Z86.73 Stenosis of left middle cerebral artery I66.02 Time Spent (min) 90 Comment Total time includes patient contact, chart review, counseling, note preparation
[2024-06-10 10:06] LABS: Estimated Average Glucose 143 mg/dl; Hemoglobin A1C 6.6 % (4.5-5.6)
--- NOTE | 2024-06-10 11:48 | Pharmacy Report ---
- Date of Service June 10, 2024 - Pharmacy CVA/TIA Medication Review Medications to Prevent Stroke handout has been added to the patients discharge packet. Antiplatelet(s) * Aspirin 81mg daily + plavix 75mg daily x 4 weeks, then transition back to clopidogrel monotherapy Cholesterol * High intensity statin: atorvastatin 80 mg daily DVT Prophylaxis * SCD knee Therapeutic Anticoagulation * No history of Afib/Aflutter noted Type 2 Diabetes * Patient has T2DM, but per hospitalist, a diabetes medication with proven CVD benefit will be deferred to their outpatient provider due to familiarity with risks/benefits of such therapies. "Medications to prevent stroke" handout has already been added to the patient's discharge packet, which instructs the patient to follow up with their outpatient provider to evaluate which diabetes medication with proven CVD benefit is best for them
[2024-06-10] MEDS: levETIRAcetam 500 MG TAB PO SCH (11:55)
--- NOTE | 2024-06-10 12:06 | Electroencephalogram ---
EEG Procedure Note Date of Service June 10, 2024 Start / End Times Start Time: 11:15 AM End Time: 11:35 AM Referring Physician Barber Gibson MD History Seizure-like episode, history of left frontal lobe stroke Home Medication List Medication Instructions Recorded Confirmed Type amlodipine 10 mg tablet 10 mg PO QAM 05/27/24 06/09/24 History atorvastatin 80 mg tablet (Lipitor) 80 mg PO QAM 05/27/24 06/09/24 History bupropion HCl 150 mg 24 hr tablet, 150 mg PO QAM 05/27/24 06/09/24 History extended release (Wellbutrin XL) clopidogrel 75 mg tablet (Plavix) 75 mg PO QAM 05/27/24 06/09/24 History escitalopram oxalate 20 mg tablet 20 mg PO QAM 05/27/24 06/09/24 History (Lexapro) hydrochlorothiazide 25 mg tablet 25 mg PO QAM 05/27/24 06/09/24 History lisinopril 40 mg tablet 40 mg PO QAM 05/27/24 06/09/24 History metformin 1,000 mg tablet 1,000 mg PO BID 05/27/24 06/09/24 History Inpatient Medication List Aspirin (Aspirin 81 Mg Ectab) 81 mg PO [facility] Stop: 07/10/24 08:59 Last Admin: 06/10/24 08:52 Dose: 81 mg Documented By: AM Atorvastatin Calcium ([facility]atin 40 Mg Tab) [facility] [place] [facility]: 07/10/24 08:59 Last Admin: 06/10/24 08:53 Dose: 80 mg Documented By: AM Bupropion HCl (Bupropion Xl 150 Mg Tabcr) 150 mg PO [facility] Stop: 07/10/24 08:59 Last Admin: 06/10/24 08:52 Dose: 150 mg Documented By: AM Clopidogrel Bisulfate (Clopidogrel Bisulfate 75 Mg Tab) [facility] [place] [facility]: 07/10/24 08:59 Last Admin: 06/10/24 08:52 Dose: 75 mg Documented By: AM Escitalopram Oxalate (Escitalopram Oxalate 20 Mg Tab) [facility] [place]: 07/10/24 08:59 Last Admin: 06/10/24 08:53 Dose: 20 mg Documented By: AM Insulin Aspart (Insulin Aspart Per Unit Charge) 0 units SC [facility] Stop: 07/09/24 21:06 Last Admin: 06/10/24 11:59 Dose: 2 units Documented By: AM Co-signed By: Admin: 06/10/24 08:50 Dose: 2 units Documented By: AM Co-signed By: MICHELLE Admin: 06/09/24 22:08 Dose: Not Given Documented By: LOTTIE Levetiracetam (Levetiracetam 500 Mg Tab) 500 mg PO BID JENNI Stop: 07/10/24 10:14 Last Admin: 06/10/24 11:55 Dose: 500 mg Documented By: AM Discontinued Medications Aspirin (Aspirin 81 Mg Chew) 324 mg PO NOW STA Stop: 06/09/24 20:15 Last Admin: 06/09/24 20:26 Dose: 324 mg Documented By: MEGAN Magnesium Sulfate/Dextrose (Magnesium Sulfate / D5w) 1 gm in 100 mls @ 100 mls/hr IV NOW STA Stop: 06/09/24 18:51 Last Infusion: 06/09/24 19:47 Dose: Infused Documented By: Admin: 06/09/24 18:41 Dose: 100 mls/hr Documented By: JANKI Sodium Chloride (Nss) 500 mls @ 999 mls/hr IV .Q31M ONE Stop: 06/09/24 19:38 Last Infusion: 06/09/24 19:47 Dose: Infused Documented By: Admin: 06/09/24 19:16 Dose: 999 mls/hr Documented By: MEGAN Lactated Ringer's (Lr) 1,000 mls @ 100 mls/hr IV .Q10H JENNI Stop: 06/10/24 06:29 Last Infusion: 06/10/24 09:05 Dose: Infused Documented By: Admin: 06/09/24 20:27 Dose: 100 mls/hr Documented By: MEGAN Ioversol (Optiray 320 125ml) 115 ml IV ONCE ONE Stop: 06/09/24 18:29 Last Admin: 06/09/24 18:29 Dose: 115 ml Documented By: ROSAURA Description This is a 21 electrode EEG with a single channel dedicated to limited EKG. The electrodes were placed in accordance with the International 10-20 system. There is a posterior dominant rhythm of 9 to 10 Hz which is symmetrically distributed and attenuates with eye opening. There is a normal organization. Photic stimulation is there is a symmetric frontal beta rhythm. There are left frontal spikes and sharps study. There is no following slow wave. There is no focal slowing. Interpretation Borderline abnormal EEG with evidence of left frontal spikes and sharps, no following slow-wave, however. Clinical Correlation The above EEG finding in the context of this patient's medical history and brain MRI findings could indicate an increased risk for seizures. See today's neurology consult for details. [facility] EEG Procedure Codes Indication for Procedure (1) Seizure-like activity: Neurology Neurology: 70027 EEG include record awake & drowsy
[2024-06-10 15:48] VITALS: BP 158/82; TEMP 97.9; O2SAT 95
[2024-06-10 17:35] VITALS: PULSE 73
[2024-06-10] MEDS: STROKE PATIENT DISCHARGE STA (17:37)
--- NOTE | 2024-06-10 18:24 | XCELERA ---
[id number] [id number]
--- NOTE | 2024-06-11 02:19 | Billing Data ---
Date of Service June 11, 2024 Coding Level of Care Code 25611 INT INP/OBS CARE
--- NOTE | 2024-06-11 06:12 | Electrocardiogram Report ---
Test Reason : Blood Pressure : */* mmHG Vent. Rate : 68 BPM Atrial Rate : 68 BPM P-R Int : 118 ms QRS Dur : 80 ms QT Int : 442 ms P-R-T Axes : 7 -3 5 degrees QTcB Int : 471 ms Normal sinus rhythm Normal ECG No previous ECGs available Confirmed by Je Slaughter ([id number]) on 06/11/2024 6:12:23 AM Referred By: Confirmed By: Je Slaughter
== END 2024-06-10 17:37 | disposition home or self-care (01) | DRG 69 ==
LOC: ED 16:30 → 2S 20:13 → SUATTDRO 20:13 → 2S 21:01